=== PATIENT | male | born 1975 | race Caucasian/White ===

== ENCOUNTER 2021-01-14 13:34 | Emergency (ER) | payer OTHER, SELFPAY ==
[2021-01-14] VITALS (23 sets, daily range): BP systolic 121–153; BP diastolic 85–106; PULSE 63–81; RESP 12–35; TEMP 36.7; O2SAT 94–99; BMI 29.8
[2021-01-14] MEDS: SODIUM CHLORIDE 0.9% 1,000 ML 1000 ML IV (13:30)
[2021-01-14] MEDS: propofoL 200 MG/20 ML VIAL 120 MG IV (13:30)
--- NOTE | 2021-01-14 13:36 | DI.RAD.S_ITS ---
PROCEDURE: XR ANKLE LT 2V INDICATIONS: obvious deformity TECHNIQUE: AP and lateral views of the ankle were acquired. COMPARISON: None. FINDINGS: Bones: There is posterolateral dislocation of the tibiotalar joint with significant narrowing of the medial clear space. A mildly displaced intra-articular fracture is seen in the posterior tibia. There is an oblique fracture of the distal fibula at the level of the syndesmosis with posterior and lateral angulation. Small plantar calcaneal enthesophyte. Soft tissues: Soft tissue edema is seen surrounding the ankle. IMPRESSION: Posterolateral tibiotalar dislocation with a displaced intra-articular fracture of the posterior tibial plafond as well as an oblique fracture of the distal fibula with posterior and lateral angulation. Dictated by: Harpreet Bui M.D. on 01/14/2021 at 14:19 Approved by: Harpreet Bui M.D. on 01/14/2021 at 14:22
--- NOTE | 2021-01-14 14:04 | DI.CT.S_ITS ---
PROCEDURE: CT CHEST ABD PEL W CON INDICATIONS: trauma, crush injury TECHNIQUE: After the administration of oral and intravenous contrast, 5 mm thick sections acquired from the lung apices to the symphysis. 5 mm coronal and sagittal reformats were performed, with additional 7 mm coronal MIP reformats through the lungs. For radiation dose reduction, the following was used: automated exposure control, adjustment of mA and/or kV according to patient size. COMPARISON: None. FINDINGS: Image quality: Excellent. CHEST: Normal where well seen Lungs and pleura: No definite acute airspace opacities, and there is mild alveolar prominence at each posterior lung base considered more likely secondary to atelectasis than 2 pulmonary contusion.. No pleural effusions or pneumothorax. Central and peripheral airways appear patent and normal in caliber. Mediastinum: Heart size is normal. No pericardial effusion. No mediastinal or hilar adenopathy by size criteria. Thoracic aorta and central pulmonary arteries are normal in size. Esophagus is normal in caliber. No hiatal hernia. Chest wall: No axillary or supraclavicular adenopathy by size criteria. Thyroid gland appears . ABDOMEN: Solid organs: Liver is normal in size and enhancement. Gallbladder appears normal. Biliary system is non dilated. Pancreas enhances normally. Spleen is normal in size and enhancement. No adrenal nodules. Kidneys demonstrate normal size and enhancement, without hydronephrosis. Peritoneum and bowel: Bowel loops demonstrate normal wall thickness and caliber. No free fluid or air. Nodes and vessels: No retroperitoneal or mesenteric adenopathy by size criteria. Aorta and inferior vena cava are normal in size. Miscellaneous: No ventral hernias. PELVIS: Genitourinary: Bladder wall thickness is normal. Miscellaneous: No inguinal hernias or adenopathy. A normal appendix is found at the right lower quadrant. Bones: No suspicious bony lesions. No vertebral body compression fractures. Note is made of grade 2 anterolisthesis of L5 on S1 with a morphologic appearance and reactive sclerosis likely indicating presence of bilateral pars interarticularis defects, chronic. IMPRESSION: No definite acute trauma found. Mild lung base atelectasis posteriorly. No visceral injury found. 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 No associated acute trauma is seen. sourcing specialist consultation may be warranted given this finding, electively, however. Dictated by: Akshat Larios M.D. on 01/14/2021 at 14:37 Approved by: Akshat Larios M.D. on 01/14/2021 at 14:43
[2021-01-14] MEDS: HYDROMORPHONE 1 MG INJ IV (14:21)
[2021-01-14 14:35] LABS: Add Manual Diff / Slide Review NO; Basophils Absolute Auto 0 /uL (0-100); Basophils Percent Auto 0.6 % (0-2); Eosinophils Absolute Auto 0 /uL (0-450); Eosinophils Percent Auto 0.3 % (2-4); Hematocrit 38.7 % (41-53); Hemoglobin 13.2 g/dL (13.5-17.5); Lymphocytes Absolute Auto 1300 /uL (1100-4500); Mean Corpuscular HGB Conc 34.1 % (30-36); Mean Corpuscular Hemoglobin 28.3 PG (26-34); Mean Corpuscular Volume 82.9 fL (80-100); Monocytes Absolute Auto 400 /uL (0-900); Monocytes Percent Auto 5.8 % (3-14); Neutrophils Absolute Auto 5700 /uL (1500-7000); Neutrophils Percent Auto 76.3 % (50-75); Platelet Count 221 X10^3/uL (150-400); Red Blood Cell Count 4.67 X10^6/uL (4.5-5.9); Red Cell Distribution Width 13.6 % (11.6-14.8); White Blood Cell Count 7.4 X10^3/uL (4.5-11.0)
[2021-01-14 14:42] LABS: INR 1.1 (0.9-1.3)
--- NOTE | 2021-01-14 14:54 | ED_ITS ---
HPI - Extremity Injury (Lower) General Chief Complaint: Trauma Stated Complaint: Wall fell on Back/Leg Time Seen by Provider: 01/14/21 13:37 Source: patient and EMS Mode of arrival: EMS Limitations: no limitations History of Present Illness HPI Narrative: 45-year-old male nonsmoker with noncontributory medical history presents by EMS for evaluation of a significant lower extremity injury suffered while at work today. 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 He denies any head neck injury and had no loss of consciousness. He denies any neuro symptoms such as blurred vision, trouble speech. He does have some low back pain that he relates his rather chronic. He denies any numbness or tingling in his groin. He denies any weakness of his lower extremity. He denies any footdrop. His left foot, though grossly deformed is closed and neurovascularly intact. Patient given fentanyl 100 mcg prior to his arrival. He has no chest pain or trouble breathing and was not crushed. His leg was not pinned for any significant length of time. MD complaint: leg injury and ankle injury Onset (ago): minute(s) Injury: Left: ankle Type of Injury: other Place: work Severity: severe Relieving factors: nothing Exacerbating factors: weight bearing, movement and palpation Context: direct blow Associated symptoms: unable to bear weight Treatments prior to arrival: splint Related Data Previous Rx's Medication Instructions Recorded ondansetron 4 mg PO TID-QID PRN #10 tab 01/14/21 oxycodone 5 mg PO Q4-6H PRN #30 tab 01/14/21 Allergies Allergy/AdvReac Type Severity Reaction Status Date / Time No Known Drug Allergies Allergy Verified 01/14/21 14:30 Review of Systems Constitutional Constitutional: Denies chills, Denies fatigue, Denies fever(s), Denies frequent falls, Denies lethargy and Denies weakness Eyes Eyes: Denies change in vision, Denies eye discharge, Denies irritation and Denies loss of vision ENT Ears, Nose, Mouth, and Throat: Denies change in voice, Denies dizziness, Denies neck pain, Denies sore throat and Denies throat swelling Cardiovascular Cardiovascular: Denies chest pain, Denies irregular heart rhythm, Denies li ghtheadedness, Denies palpitations, Denies dyspnea, Denies dyspnea on exertion and Denies orthopnea Respiratory Respiratory: Denies cough, Denies dyspnea, Denies dyspnea on exertion and Denies wheezing Gastrointestinal Gastrointestinal: Denies abdominal pain, Denies change in bowel habits, Denies diarrhea, Denies nausea and Denies vomiting Musculoskeletal Musculoskeletal: Reports back pain, Reports deformity, Reports arthralgias, Reports joint swelling, Reports limited range of motion, Denies neck pain and Denies numbness Integumentary/Breasts Skin/Breast: Denies pruritus, Denies erythema, Denies rash and Denies wounds Neurologic Neurologic: Denies behavioral changes, Denies confusion, Denies dizziness, Denies frequent falls, Denies loss of vision, Denies numbness and Denies weakness Psychiatric Psychiatric: Denies anxiety, Denies behavioral changes, Denies confusion, Denies depression, Denies homicidal ideation and Denies suicidal ideation Endocrine Endocrine: Denies fatigue, Denies flushing and Denies palpitations Hematologic/Lymphatic Hematologic/Lymphatic: Denies easy bruising Allergic/Immunologic Allergic/Immunologic: Denies urticaria, Denies throat swelling and Denies wheezing Patient History alcohol intake frequency: 0-2 drinks per day Alcohol type: beer Substance Use Type: does not use Exam Narrative Exam Narrative: GENERAL: [45] year old patient appears stated age. Well- nourished, well-developed patient, in mild distress. GCS 15 HEAD: Atraumatic. Normocephalic. EYES: Pupils equal round and reactive. Extraocular motions intact. No scleral icterus. No injection or drainage. ENT: Nose without bleeding, purulent drainage. Throat without erythema, tonsillar hypertrophy or exudate. Airway patent. NECK: Trachea midline. Non tender CARDIOVASCULAR: Regular rate and rhythm without murmurs, gallops, or rubs. RESPIRATORY: Clear to auscultation. Breath sounds equal bilaterally. No wheezes, rales, or rhonchi. GASTROINTESTINAL: Abdomen soft, non-tender, nondistended. EXTREMITIES: Obvious deformity of left ankle with significant lateral rotation, neurovascularly intact, good color, good sensation and closed. No pain to mid tim, knee, femur or hip.. BACK: dye range tender but free of any obvious external abnormalities. Patient exam notes decreased range of motion and muscle spasm, but no CVA tenderness, or vertebral point tenderness. There are no symptoms of cauda equina such as saddle anesthesia, and decreased reflexes, decreased sensation or strength.. NEURO: AOx3. SKIN: No rash or erythema of visible areas Initial Vital Signs Initial Vital Signs: Vital Signs Temperature 98.1 F 01/14/21 13:30 Pulse Rate 81 01/14/21 13:30 Respiratory Rate 16 01/14/21 13:30 Blood Pressure 144/103 H 01/14/21 13:30 Pulse Oximetry 99 01/14/21 13:30 Procedures Orthopedic Joint Reduction Joint #1: Time Out Performed: Yes Side: left Joint Reduction Location: ankle Analgesia: procedural sedation Technique used: traction/counter-traction Post-reduction neuro exam: intact Post-reduction vascular: intact Post Reduction X-Ray Obtained: Yes Post Reduction X-Ray Results: reduced Splint Applied: Yes Patient Tolerated Procedure: Well Orthopedic Splinting/Casting Injury #1: Side: left Lower Extremity Injury Location: ankle Lower Extremity Immobilizer: posterior splint and stirrup splint Other Orthopedic Equipment: crutches Post splinting neuro exam: intact Post splinting vascular exam: intact Placed by: Provider Procedural Sedation Consent signed: Yes Time out performed: Yes Indication: fracture/dislocation reduction ASA Class: II Mallampati Airway Classification: Class II Preparation: threat monitoring analyst applied, pulse oximeter, capnometry used, supplemental O2 applied, suction/airway equipment at bedside and IV secured IV Propofol dose (mg): 130 Intraservice time/total sedation time (min): 10 ED Sedation Level: Moderate (Concious) Patient Tolerated Procedure: Well Complications: none Course Orders Ordered: ED Orders 01/14/21 13:36 XR ankle LT 2V Stat 01/14/21 14:04 CT chest abd pel w con Stat 01/14/21 14:21 Basic Metabolic Panel Stat Complete Blood Count AUTO DIFF Stat Prothrombin Time INR Stat Troponin & CK Cardiac Panel Stat Discontinued Medications Hydromorphone HCl (Hydromorphone 1 Mg Inj) 1 mg IV NOW ONE Stop: 01/14/21 14:05 Last Admin: 01/14/21 14:21 Dose: 1 mg Documented by: CSIEDLE Sodium Chloride (Normal Saline 0.9%) 1,000 mls @ 1,000 mls/hr IV BOLUS ONE Stop: 01/14/21 15:03 Last Infusion: 01/14/21 14:23 Dose: 0 mls/hr Documented by: Admin: 01/14/21 13:30 Dose: 1,000 mls/hr Documented by: FAUZIA Ondansetron HCl (Ondansetron 4 Mg/2 Ml Inj) 4 mg IV NOW ONE Stop: 01/14/21 14:05 Last Admin: 01/14/21 14:30 Dose: Not Given Documented by: FAUZIA Propofol (Propofol 200 Mg/20 Ml Vial) 120 mg IV NOW ONE Stop: 01/14/21 13:39 Last Admin: 01/14/21 13:30 Dose: 120 mg Documented by: FAUZIA Tetanus/Diphtheria Toxoids (Tetanus Diphtheria Toxoids 0.5 Ml Vial) 0.5 ml IM .ONCE ONE Stop: 01/14/21 14:46 Last Admin: 01/14/21 14:57 Dose: 0.5 ml Documented by: FAUZIA Consultations Consultation #1: Case discussed with on-call orthopedics. He is in complete agreement with reduction and splint plan with no weight-bearing. Pain control return precautions and close follow-up for inevitable surgical repair. Addit ionally, he reviewed the findings in the lumbar spine and agree that this is not an acute finding, encourage is return precautions for neurologic symptoms consistent with cauda equina and follow-up with his office Vital Signs Vital signs: Vital Signs - 8 hr 01/14/21 13:30 01/14/21 13:37 01/14/21 13:40 Temperature 98.1 F 98.1 F 98.1 F Pulse Rate 81 80 80 Respiratory Rate 16 16 Blood Pressure 144/103 H 144/103 H Blood Pressure [Right Arm] 144/103 H Pulse Oximetry 99 97 99 01/14/21 13:41 01/14/21 13:42 01/14/21 13:45 Temperature Pulse Rate 74 75 79 Respiratory Rate 20 15 12 Blood Pressure 143/104 H 136/90 Blood Pressure [Right Arm] Pulse Oximetry 99 99 96 01/14/21 13:46 01/14/21 13:47 01/14/21 13:50 Temperature Pulse Rate 81 80 80 Respiratory Rate 21 22 20 Blood Pressure 124/85 121/86 Blood Pressure [Right Arm] 124/85 Pulse Oximetry 95 94 97 01/14/21 13:55 01/14/21 14:00 01/14/21 14:05 Temperature Pulse Rate 78 79 65 Respiratory Rate 30 H 35 H 17 Blood Pressure 153/106 H Blood Pressure [Right Arm] Pulse Oximetry 98 01/14/21 14:10 01/14/21 14:20 01/14/21 14:25 Temperature Pulse Rate 71 66 64 Respiratory Rate 15 12 16 Blood Pressure Blood Pressure [Right Arm] Pulse Oximetry 99 97 97 01/14/21 14:30 01/14/21 14:35 01/14/21 14:40 Temperature Pulse Rate 75 63 68 Respiratory Rate 18 17 18 Blood Pressure Blood Pressure [Right Arm] Pulse Oximetry 97 97 96 01/14/21 14:45 01/14/21 14:50 01/14/21 14:55 Temperature Pulse Rate 70 77 67 Respiratory Rate 21 26 H 23 Blood Pressure Blood Pressure [Right Arm] Pulse Oximetry 98 97 97 01/14/21 15:00 01/14/21 15:30 Temperature Pulse Rate 67 71 Respiratory Rate 20 18 Blood Pressure Blood Pressure [Right Arm] Pulse Oximetry 97 96 MDM - Extremity Injury (Lower) Lab Data Result diagrams: 01/14/21 14:21 01/14/21 14:21 Labs: Lab Results 01/14/21 01/14/21 01/14/21 Range/Units 14:21 14:21 14:21 WBC 7.4 (4.5-11.0) X10^3/uL RBC 4.67 (4.5-5.9) X10^6/uL Hgb 13.2 L (13.5-17.5) g/dL Hct 38.7 L (41-53) % MCV 82.9 (80-100) fL MCH 28.3 (26-34) PG MCHC 34.1 (30-36) % RDW 13.6 (11.6-14.8) % Plt Count 221 (150-400) X10^3/uL Neut % (Auto) 76.3 H (50-75) % Lymph % (Auto) 17.0 L (25-40) % Travis % (Auto) 5.8 (3-14) % Eos % (Auto) 0.3 L (2-4) % Baso % (Auto) 0.6 (0-2) % Neut # (Auto) 5700 (0076-7290) /uL Lymph # (Auto) 1300 (8271-0066) /uL Travis # (Auto) 400 (0-900) /uL Eos # (Auto) 0 (0-450) /uL Baso # (Auto) 0 (0-100) /uL PT 12.0 (10.1-12.7) SECONDS INR 1.1 (0.9-1.3) Sodium 132 L (137-145) mmol/L Potassium 3.8 (3.4-5.1) mmol/L Chloride 101 (98-107) mmol/L Carbon Dioxide 22 (22-32) mmol/L BUN 14 (9-20) mg/dL Creatinine 0.84 (0.66-1.25) mg/dL Estimated GFR > 60.0 (>60) mL/min BUN/Creatinine Ratio 16.7 (6-22) Glucose 103 H (70-100) mg/dL Calcium 8.2 L (8.4-10.2) mg/dL Total Creatine Kinase 218 H (55-170) U/L CK-MB (CK-2) 1.83 (<2.37) ng/mL CK-MB (CK-2) Rel Index 0.8 L (1.5-5.0) % Troponin I < 0.012 (0.01-0.034) ng/mL Imaging Data Extremity x-ray #1: Radiologist's Impression: Leeroy Rader 45 M [address] [id number] ReportSigned Patient: Leeroy RaderMR#: [id number]: 1975Acct:[id number]/Sex: 45 / MDate of Service: 01/14/21Loc: EDAccession Number: [id number] Procedure: XR ankle LT 2V Ordering Provider: Brian Schwab D.O. PROCEDURE: XR ANKLE LT 2V INDICATIONS: obvious deformity TECHNIQUE: AP and lateral views of the ankle were acquired. COMPARISON: None. FINDINGS: Bones: There is posterolateral dislocation of the tibiotalar joint with significant narrowing of the medial clear space. A mildly displaced intra-articular fracture is seen in the posterior tibia. There is an oblique fracture of the distal fibula at the level of the syndesmosis with posterior and lateral angulation. Small plantar calcaneal enthesophyte. Soft tissues: Soft tissue edema is seen surrounding the ankle. IMPRESSION: Posterolateral tibiotalar dislocation with a displaced intra- articular fracture of the posterior tibial plafond as well as an oblique fracture of the distal fibula with posterior and lateral angulation. Dictated by: Harpreet Bui M.D. on 01/14/2021 at 14:19 Approved by: Harpreet Bui M.D. on 01/14/2021 at 14:22 CT scan - chest: Radiologist's Impression: Leeroy Rader 45 M [address] [id number] Scan ReportSigned Patient: Leeroy RaderMR#: [id number]: [id number]:[id number]/Sex: 45 / MDate of Service: 01/14/21Loc: EDAccession Number: [id number] Procedure: CT chest abd pel w con Ordering Provider: Brian Schwab D.O. PROCEDURE: CT CHEST ABD PEL W CON INDICATIONS: trauma, crush injury TECHNIQUE: After the administration of oral and intravenous contrast, 5 mm thick sections acquired from the lung apices to the symphysis. 5 mm coronal and sagittal reformats were performed, with additional 7 mm coronal MIP reformats through the lungs. For radiation dose reduction, the following was used: automated exposure control, adjustment of mA and/or kV according to patient size. COMPARISON: None. FINDINGS: Image quality: Excellent. CHEST: Normal where well seen Lungs and pleura: No definite acute airspace opacities, and there is mild yovana eolar prominence at each posterior lung base considered more likely secondary to atelectasis than 2 pulmonary contusion.. No pleural effusions or pneumothorax. Central and peripheral airways appear patent and normal in caliber. Mediastinum: Heart size is normal. No pericardial effusion. No mediastinal or hilar adenopathy by size criteria. Thoracic aorta and central pulmonary arteries are normal in size. Esophagus is normal in caliber. No hiatal hernia. Chest wall: No axillary or supraclavicular adenopathy by size criteria. Thyroid gland appears . ABDOMEN: Solid organs: Liver is normal in size and enhancement. Gallbladder appears normal. Biliary system is non dilated. Pancreas enhances normally. Spleen is normal in size and enhancement. No adrenal nodules. Kidneys demonstrate normal size and enhancement, without hydronephrosis. Peritoneum and bowel: Bowel loops demonstrate normal wall thickness and caliber. No free fluid or air. Nodes and vessels: No retroperitoneal or mesenteric adenopathy by size criteria. Aorta and inferior vena cava are normal in size. Miscellaneous: No ventral hernias. PELVIS: Genitourinary: Bladder wall thickness is normal. Miscellaneous: No inguinal hernias or adenopathy. A normal appendix is found at the right lower quadrant. Bones: No suspicious bony lesions. No vertebral body compression fractures. Note is made of grade 2 anterolisthesis of L5 on S1 with a morphologic appearance and reactive sclerosis likely indicating presence of bilateral pars interarticularis defects, chronic. IMPRESSION: No definite acute trauma found. Mild lung base atelectasis posteriorly. No visceral injury found. 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 No associated acute trauma is seen. wound specialist consultation may be warranted given this finding, electively, however. Dictated by: Akshat Larios M.D. on 01/14/2021 at 14:37 Approved by: Akshat Larios M.D. on 01/14/2021 at 14:43 Discharge Plan Departure Patient Disposition: Home Clinical Impression: Closed fracture dislocation of left ankle Qualifiers: Encounter type: initial encounter Qualified Code(s): S82.892A - Other fracture of left lower leg, initial encounter for closed fracture Instructions: DI for Trauma Activity Restrictions/Additional Instructions: *You have been diagnosed with [closed left ankle fracture dislocation] *What to do: *Please continue to take your regular medications as directed. [x ] New medication prescriptions sent to your pharmacy: [ [facility]] [ ] New medication written as a paper prescription [ ] No new medications given *Please follow up with your primary care provider in 2-3 days, call for an appoi ntment. Let them know you were seen in the Emergency Department and that we ask that you be seen in follow up. We will electronically transmit a record of today's note if your PCP is in our system *If you do not have a primary care provider please contact the [facility] Resource line at [phone]. They will ask some questions about your medical history and help get you set up with a doctor in the community. *Return to Emergency Department if you should have any new, worsening or france rning symptoms, such as [fever greater than 101 F, shaking chills, worsening pain, persistent vomiting or other bothersome symptoms] Prescriptions: New oxycodone 5 mg tablet 5 mg PO Q4-6H PRN (Reason: pain) Qty: 30 RF: 0 ondansetron 4 mg tablet,disintegrating 4 mg PO TID-QID PRN (Reason: nausea and vomiting) Qty: 10 RF: 0
[2021-01-14] MEDS: TETANUS DIPHTHERIA TOXOIDS 0.5 ML VIAL IM (14:57)
[2021-01-14] MEDS: fentaNYL 100 MCG/2 ML INJ (15:03)
[2021-01-14 15:19] LABS: BUN Creatinine Ratio 16.7 (6-22); Blood Urea Nitrogen 14 mg/dL (9-20); Calcium 8.2 mg/dL (8.4-10.2); Carbon Dioxide 22 mmol/L (22-32); Chloride 101 mmol/L (98-107); Creatine Kinase 218 U/L (55-170); Estimated Glomerular Filt Rate > 60.0 mL/min (>60); Glucose 103 mg/dL (70-100); HEMOLYSIS < 15 (0-50); Potassium 3.8 mmol/L (3.4-5.1); Sodium 132 mmol/L (137-145)
[2021-01-14 15:43] LABS: CKMB % Relative Index 0.8 % (1.5-5.0); Creatine Kinase MB 1.83 ng/mL (<2.37)
[2021-01-14 15:57] LABS: Troponin I < 0.012 ng/mL (0.01-0.034)
--- NOTE | 2021-01-14 16:09 | PC.NURSE ---
pt lives near [place]. was advised to call a local ortho near him. was given number to [facility] if needed. RX's sent to [facility] and pt assisted to obtain them via wheelchair. Pts employer in ED to take pt home. L&I forms filled out and pt given copy with claim number. Reports pain controlled upon DC and instructed how to use medications in addition to tylenol and motrin at home.
== END 2021-01-14 16:11 | disposition home or self-care (01) ==
PROVIDERS: Emergency Provider Emergency Medicine
DX: S82.892A Other fracture of left lower leg, initial encounter for closed fracture (principal); W23.0XXA Caught, crushed, jammed, or pinched between moving objects, initial encounter; Y99.0 Civilian activity done for income or pay; Z23 Encounter for immunization
CPT/HCPCS: 27788; 71260; 73600; 74177; 80048; 82550; 82553; 84484; 85025; 85610; 90471; 90714; 96361; 96374; 99152; 99285; 99291; 99292; J1170; J2704; J3010; Q9967